=== PATIENT | male | born 1955 | race Caucasian/White ===

== ENCOUNTER → 2018-04-22 | Outpatient (CLI) | payer BC ==
[2018-04-23 15:09] LABS: Protein, Urine Quantitative 6.2 mg/dL (0.0-11.9)
== END ==
LOC: LAB 08:30 → LAB SHORT 08:30
PROVIDERS: Family Medicine
DX: E11.9 Type 2 diabetes mellitus without complications (principal)
CPT/HCPCS: 81050; 84156

== ENCOUNTER 2024-06-01 14:43 | Inpatient (IN) | payer MEDICARE, BC ==
[~2024-06-01] VITALS: Ht 175.3 cm; Wt 123.3 kg
[~2024-06-01 14:43] MED LIST: ONDA4ODT MM
[2024-06-01] MEDS ORDERED: Morphine Sulfate 4 MG/1 ML Injection IV ONE ×2 (15:05→18:25)
[2024-06-01] MEDS ORDERED: Ondansetron HCl 2 MG / ML 2ML Vial IV ONE ×2 (15:05→18:25)
[2024-06-01] MEDS ORDERED: NS 1,000 ML IV SCH (15:10)
[2024-06-01 15:14] LABS: BASOPHILS ABSOLUTE AUTO 0.05 K/mm3 (0.00-0.23); BASOPHILS PERCENT AUTO 0 % (0-2); EOSINOPHILS ABSOLUTE AUTO 0.01 K/mm3 (0.00-0.68); EOSINOPHILS PERCENT AUTO 0 % (0-6); Hematocrit 37.4 % (37.0-53.0); Hemoglobin 13.3 g/dL (13.5-17.5); IMMATURE GRAN ABSOLUTE AUTO 0.07 K/mm3 (0.00-0.10); IMMATURE GRAN PERCENT AUTO 1 % (0-1); LYMPHOCYTES ABSOLUTE AUTO 1.62 K/mm3 (0.84-5.20); LYMPHOCYTES PERCENT AUTO 12 % (21-46); MONOCYTES ABSOLUTE AUTO 0.55 K/mm3 (0.16-1.47); MONOCYTES PERCENT AUTO 4 % (4-13); Mean Corpuscular HGB 31.1 pg (26.0-34.0); Mean Corpuscular HGB Conc 35.6 g/dL (31.5-36.5); Mean Corpuscular Volume 87 fL (80-100); Mean Platelet Volume 11.2 fL (9.1-12.4); NEUTROPHILS ABSOLUTE AUTO 11.51 K/mm3 (1.96-9.15); NEUTROPHILS PERCENT AUTO 83 % (41-73); Platelet Count 319 K/mm3 (150-400); RDW Coefficient Variation 11.9 % (11.7-14.2); RDW Standard Deviation 37.7 fL (35.1-46.3); Red Blood Cell Count 4.28 M/mm3 (4.30-5.90); White Blood Cell Count 13.81 K/mm3 (4.00-11.30)
[2024-06-01 15:27] LABS: Source, Urine Voided
[2024-06-01 15:28] LABS: Albumin, Blood 3.7 g/dL (3.4-5.0); Albumin/Globulin Ratio 1.1 (0.8-1.8); Bilirubin, Total 0.4 mg/dL (0.1-1.0); Bun/Creatinine Ratio 20.1 (12.0-20.0); Calcium, Blood 9.8 mg/dL (8.5-10.1); Creatinine, Blood 0.95 mg/dL (0.60-1.20); Globulin, Blood 3.3 g/dL (2.2-4.0); Potassium, Blood 3.8 mmol/L (3.5-5.5)
[2024-06-01 15:35] LABS: Appearance, Urine Clear (Clear); Bilirubin, Urine Neg (Neg); Blood, Urine 1+ (Neg); Color, Urine Yellow (P-Yellow); Glucose Qualitative, Urine 4+ (Neg); Ketones, Urine 1+ (Neg); Leukocyte Esterase, Urine 1+ (Neg); Nitrite, Urine Neg (Neg); Protein, Urine 4+ (Neg); Specific Gravity, Urine 1.015 (1.003-1.022); Urobilinogen, Urine NORM (Normal)
[2024-06-01 15:52] LABS: Bacteria Few /hpf; Hyaline Casts 0-2 /lpf (0-2)
[2024-06-01 15:53] LABS: Amorphous Light (0-Heavy); Squamous Epithelial Cells Rare /hpf (Few)
[2024-06-01] MEDS ORDERED: Metoprolol Tartrate 1 MG/ML 5 ML VIAL IV ONE (16:10)
[2024-06-01] MEDS ORDERED: dilTIAZem HCL 100 MG in NS 100 ML IV SCH (18:20)
[2024-06-01] MEDS ORDERED: Diltiazem HCl 5 MG / ML 5ML Vial IV ONE (18:20)
[2024-06-01] MEDS ORDERED: Ondansetron HCl 2 MG / ML 2ML Vial IV PRN (19:10)
[2024-06-01] MEDS ORDERED: FLU VACC TS2024-25(6MOS UP)/PF 45 MCG/0.5 ML SYRINGE IM ONE (19:15)
[2024-06-01] MEDS ORDERED: Acetaminophen 325 MG TABLET PO PRN (19:15)
[2024-06-01] MEDS ORDERED: FentaNYL Citrate 50 MCG/ML 2 ML Injection IV PRN ×2 (19:20→21:00)
[2024-06-01 19:32] LABS: U Amphetamine Screen Not Detected; U Barbituate Screen Not Detected; U Benzodiazapine Screen Not Detected; U Buprenorphine Screen Not Detected; U Cannabinoids Screen Not Detected; U Cocaine Screen Not Detected; U Methadone Screen Not Detected; U Methamphetamine Screen Not Detected; U Opiates Screen Not Detected; U Oxycodone Screen Not Detected; U Phencyclidine Screen Not Detected
[2024-06-01 19:40] LABS: Magnesium, Blood 1.4 mg/dL (1.6-2.4); Thyroid Stimulating Hormone 0.939 uIU/mL (0.360-4.800)
[2024-06-01] MEDS ORDERED: Metoprolol Tartrate 25 MG Tab PO SCH (20:00)
[2024-06-01] MEDS ORDERED: Insulin Glargine-Yfgn 100 Unit/mL 3 ML SYR SC SCH (20:00)
[2024-06-01] MEDS ORDERED: Aspirin 325 MG Tab PO ONE (20:00)
[2024-06-01] MEDS ORDERED: Furosemide 10 MG/ML 4ML Vial IV SCH (20:13)
[2024-06-01 20:18] LABS: Anti-Xa UFH, PHA Monitoring <0.10 IU/mL; International Normalized Ratio 1.07; Prothrombin Time Results 11.4 Sec (9.7-11.5)
[2024-06-01] MEDS ORDERED: Magnesium Sulf 2 GM/Water 50ML 50 ML IV STA (20:19)
[2024-06-01] MEDS ORDERED: Dose Adjust by Pharmacy XX STA (20:26)
[2024-06-01] MEDS ORDERED: Heparin Sodium,Porcine/0.5 NS 500 ML IV SCH (20:30)
[2024-06-01] MEDS ORDERED: Heparin Sodium 5000 Units/ML 1ML MDV IV ONE (20:30)
[2024-06-01 21:08] LABS: Adenovirus Not Detected (NOT DETECT); Bordetella pertussis Not Detected (NOT DETECT); Chlamydophila pneumoniae Not Detected (NOT DETECT); Coronavirus 229E Not Detected (NOT DETECT); Coronavirus HKU1 Not Detected (NOT DETECT); Coronavirus NL63 Not Detected (NOT DETECT); Coronavirus OC43 Not Detected (NOT DETECT); Human Metapneumovirus Not Detected (NOT DETECT); Human Rhinovirus/Enterovirus Not Detected (NOT DETECT); Influenza A/2009-H1 Not Detected (NOT DETECT); Influenza A/H1 Not Detected (NOT DETECT); Influenza A/H3 Not Detected (NOT DETECT); Influenza B Not Detected (NOT DETECT); Mycoplasma pneumoniae Not Detected (NOT DETECT); Parainfluenza Virus 1 Not Detected (NOT DETECT); Parainfluenza Virus 2 Not Detected (NOT DETECT); Parainfluenza Virus 3 Not Detected (NOT DETECT); Parainfluenza Virus 4 Not Detected (NOT DETECT); Respiratory Syncytial Virus Not Detected (NOT DETECT); SARS-Cov-2 (COVID-19), BioFire Not Detected (NOT DETECT)
[2024-06-01] MEDS ORDERED: Potassium Chloride 20 MEQ/15 ML UDC PO ONE (22:00)
[2024-06-01] MEDS ORDERED: DICL75ER PO (22:09)
[2024-06-01] MEDS ORDERED: FENOFIBRIC ACI135 MG PO (22:09)
[2024-06-01] MEDS ORDERED: METO50 PO (22:10)
[2024-06-01] MEDS ORDERED: TRAM50 PO (22:12)
[2024-06-01] MEDS ORDERED: OZEMPIC1 MG/0.72 SC (22:12)
[2024-06-01] MEDS ORDERED: METF500C PO (22:13)
[2024-06-01] MEDS ORDERED: TRESIBA FL200 UNIT/2 SC (22:14)
[2024-06-01] MEDS ORDERED: ATOR10 PO (22:15)
[2024-06-01] MEDS ORDERED: OLMSRTN-AMLDPN1 EAC8 PO (22:15)
[2024-06-01] MEDS ORDERED: OMEP20ER PO (22:16)
[2024-06-01] MEDS ORDERED: ALLEGRA ALLERG180 MG PO (22:16)
[2024-06-01] MEDS ORDERED: ZYRTEC10 M2 PO (22:17)
[2024-06-01] MEDS ORDERED: LORA10ER PO (22:17)
[2024-06-01 23:07] VITALS: BP 163/91
[2024-06-01] MEDS ORDERED: Metoprolol Tartrate 1 MG/ML 5 ML VIAL IV PRN ×2 (23:19→23:55)
[2024-06-01 23:47] VITALS: BP 128/108
[2024-06-02] VITALS (20 sets, daily range): BP systolic 103–160; BP diastolic 68–145
[2024-06-02] MEDS ORDERED: Metoprolol Tartrate 1 MG/ML 5 ML VIAL IV PRN (00:10)
[2024-06-02 03:06] LABS: Hematocrit 37.8 % (37.0-53.0); Hemoglobin 13.3 g/dL (13.5-17.5); Mean Corpuscular HGB 30.9 pg (26.0-34.0); Mean Corpuscular HGB Conc 35.2 g/dL (31.5-36.5); Mean Corpuscular Volume 88 fL (80-100); Mean Platelet Volume 10.8 fL (9.1-12.4); Platelet Count 292 K/mm3 (150-400); RDW Standard Deviation 38.5 fL (35.1-46.3); White Blood Cell Count 12.62 K/mm3 (4.00-11.30)
[2024-06-02 03:25] LABS: Albumin, Blood 3.3 g/dL (3.4-5.0); Albumin/Globulin Ratio 0.9 (0.8-1.8); Bilirubin, Total 0.3 mg/dL (0.1-1.0); Bun/Creatinine Ratio 21.3 (12.0-20.0); Calcium, Blood 8.8 mg/dL (8.5-10.1); Creatinine, Blood 0.94 mg/dL (0.60-1.20); Globulin, Blood 3.5 g/dL (2.2-4.0); Total Protein, Blood 6.8 g/dL (6.4-8.2)
[2024-06-02] MEDS ORDERED: Clarify Drug Order XX ONE ×2 (04:00→23:10)
[2024-06-02] MEDS ORDERED: Omeprazole 20 MG CapCR PO SCH (06:00)
--- NOTE | 2024-06-02 06:36 | NUR ---
PT ARRIVED BY ED BY STRETCHER AND ABLE TO STAND/PIVOT TO BED. PT STEADY ON FEET. PT ABLE TO USE URINAL AT BEDSIDE INDEPENDENTLY. PT HR MAINTAINED IN THE 140s-150s IN AFIB FOR MAJORITY OF THE SHIFT. PT WAS GIVEN METOPROLOL 5MG IVPX3 WHICH DID HELP BRING HR DOWN TO LOW 140s AFTER A CALL TO DR. BORJA REGARDING PT SUSTAINED RATE IN THE 150S. OTHER VITAL SIGNS HAVE REMAINED STABLE. PT HAS BEEN ON HEPARIN INFUSION AND DILTIAZEM INFUSING AND TOLERATING WELL THE ENTIRE SHIFT. PT HR DID IMPROVE AROUND 0300 TO 90-110s IN AFIB. PT DID HAVE SINUS RHYTHM FOR A SHORT TIME BUT SWITCHED BACK TO AFIB. DILTIAZEM DRIP ATTEMPTED TO BE TITRATED DOWN TO 10MG/HR BUT HR INCREASED BACK INTO THE 120-130S. PT RESUMED 15MG/HR OF DILTIAZEM GTT WITH GOOD RESULTS OF HR 90-100s. PT HAS HAD GOOD DIURESIS OVER THE NIGHT. HR DOES INCREASE WITH EXERTION.
[2024-06-02] MEDS ORDERED: Insulin Human Lispro 100 Units/ML 3ML Syringe SC SCH (07:30)
[2024-06-02] MEDS ORDERED: Atorvastatin 40 MG Tab PO SCH (09:00)
[2024-06-02] MEDS ORDERED: Dose Adjust by Pharmacy XX STA ×2 (09:32→16:35)
[2024-06-02] MEDS ORDERED: Heparin Sodium 5000 Units/ML 1ML MDV IV ONE (09:35)
[2024-06-02] MEDS ORDERED: Metoprolol Tartrate 25 MG Tab PO ONE (13:05)
[2024-06-02] MEDS ORDERED: TraMADol HCl 50 MG Tab PO PRN ×2 (13:10→16:15)
[2024-06-02] MEDS ORDERED: Empagliflozin 10 MG TAB PO SCH (16:00)
[2024-06-02] MEDS ORDERED: Spironolactone 25 MG Tab PO SCH (16:00)
--- NOTE | 2024-06-02 17:46 | NUR ---
SHIFT SUMMARY THE PT IS A&OX4, 1P SBA, AND CALLS APPROPRAITELY. HE IS BEING DIURESED AND A MALE PURWICK WAS SET UP TO HELP WITH ELIMINATION. THE PT HAS BEEN TITRATIED ON THE DILT GTT FROM 15 DOWN TO 5MG/HR. DR. ALAN AWARE AND STATED HE WAS GOING TO MAKE SOME MEDICATION CHANGED. DR. ALAN CAME TO BEDSIDE AND EDUCATED THE PT AND FAMILY ON ECHO RESULTS. PT RECEPTIVE TO EDUCATION. THE PLAN IS FOR DIURESIS AND THEN POSSIBLE STRESS TEST OR ANGIOGRAM FRIDAY OR FRIDAY. THE PT IS ON RA AT BASELINE, BUT IS REQUIRING 2L NC TO MAINTAIN SP02 >90%. HE DENIES ANY INCREASE SOB TODAY. THE PT REMAINS ON A HEPARIN GTT AND IT IS BEING MANAGED PER PHARMACY. FAMILY UPDATED ON CARE. SEE NOTES FOR ANY UPDATES.
[2024-06-02] MEDS ORDERED: Furosemide 10 MG/ML 4ML Vial IV SCH (18:00)
[2024-06-02] MEDS ORDERED: Metoprolol Succinate 50 MG TABCR PO SCH (21:00)
[2024-06-03] VITALS (13 sets, daily range): BP systolic 108–159; BP diastolic 70–96
[2024-06-03 04:20] LABS: BASOPHILS ABSOLUTE AUTO 0.03 K/mm3 (0.00-0.23); BASOPHILS PERCENT AUTO 0 % (0-2); EOSINOPHILS ABSOLUTE AUTO 0.05 K/mm3 (0.00-0.68); EOSINOPHILS PERCENT AUTO 0 % (0-6); Hematocrit 36.8 % (37.0-53.0); Hemoglobin 12.6 g/dL (13.5-17.5); IMMATURE GRAN ABSOLUTE AUTO 0.06 K/mm3 (0.00-0.10); IMMATURE GRAN PERCENT AUTO 1 % (0-1); LYMPHOCYTES ABSOLUTE AUTO 2.61 K/mm3 (0.84-5.20); LYMPHOCYTES PERCENT AUTO 21 % (21-46); MONOCYTES ABSOLUTE AUTO 0.95 K/mm3 (0.16-1.47); MONOCYTES PERCENT AUTO 8 % (4-13); Mean Corpuscular HGB Conc 34.2 g/dL (31.5-36.5); Mean Corpuscular Volume 90 fL (80-100); Mean Platelet Volume 11.2 fL (9.1-12.4); NEUTROPHILS ABSOLUTE AUTO 8.87 K/mm3 (1.96-9.15); NEUTROPHILS PERCENT AUTO 71 % (41-73); Platelet Count 273 K/mm3 (150-400); RDW Coefficient Variation 12.2 % (11.7-14.2); RDW Standard Deviation 40.1 fL (35.1-46.3); Red Blood Cell Count 4.07 M/mm3 (4.30-5.90); White Blood Cell Count 12.57 K/mm3 (4.00-11.30)
[2024-06-03 04:35] LABS: Bun/Creatinine Ratio 24.6 (12.0-20.0); Calcium, Blood 8.7 mg/dL (8.5-10.1); Creatinine, Blood 1.14 mg/dL (0.60-1.20); Potassium, Blood 3.1 mmol/L (3.5-5.5)
[2024-06-03] MEDS ORDERED: Clarify Drug Order XX ONE (05:05)
[2024-06-03] MEDS ORDERED: Metoprolol Succinate 50 MG TABCR PO ONE (09:20)
[2024-06-03] MEDS ORDERED: Potassium Chloride 20 MEQ TabCR PO SCH ×2 (10:00→17:00)
[2024-06-03] MEDS ORDERED: Dose Adjust by Pharmacy XX STA ×2 (11:03→16:39)
[2024-06-03] MEDS ORDERED: Bisacodyl 10 MG Supp PR PRN (11:10)
[2024-06-03] MEDS ORDERED: Magnesium Hydroxide Conc 10 ML UDC PO PRN (11:10)
[2024-06-03] MEDS ORDERED: Docusate Sodium 100 MG Cap PO SCH ×2 (11:25→21:00)
[2024-06-03] MEDS ORDERED: Aspirin 81 MG Chew PO ONE (13:35)
[2024-06-03] MEDS ORDERED: Potassium Chloride 20 MEQ/15 ML UDC PO ONE (14:00)
[2024-06-03] MEDS ORDERED: Metoprolol Succinate 50 MG TABCR PO SCH (14:00)
[2024-06-03 14:36] LABS: CHOL/HDL RATIO 3.7; Cholesterol 163 mg/dL (50-200); HDL Cholesterol 44 mg/dL (>39); LDL/HDL RATIO 1.5; Low Density Lipoprotein Chol 68 mg/dL (0-110); Triglycerides 257 mg/dL (30-160); Very Low Density Lipoprot Chol 51 mg/dL (6-32)
[2024-06-03] MEDS ORDERED: Heparin Sodium 5000 Units/ML 1ML MDV IV ONE (16:40)
--- NOTE | 2024-06-03 18:31 | NUR ---
SHIFT SUMMARY: NEURO: PATIENT ALERT AND ORIENTED X4 THROUGHOUT THE SHIFT. PATIENT REPORTED PAIN ONE TIME IN HIS RIGHT ARM RELATED TO HIS TORN ROTATOR CUFF. MEDICATED PER PRNS. PATIENT STEADY ON HIS FEET. CARDIAC: PATIENT DENIED CHEST PAIN, SHORTNESS OF BREATH, AND/OR DIZZINESS AT REST OR WITH ACTIVITY. PATIENT STARTED THE SHIFT WITH THE DILTIAZEM GTT AT 10MG/HR. THIS WAS TITRATED DOWN TO 5 MG/HR AND EVENTUALLY WAS ON STANDBY FOR MOST OF THE AFTERNOON. HR WAS IN THE 80S-100S. THE SHIFT CONTINUED, PATIENT'S HR SLOWLY STARTING TO TREND UPWARDS UNTIL HE WAS IN THE 110S. DILTIAZEM GTT RESTARTED AT 5MG/HR. PATIENT TOLERATED INCREASE IN PO METOPROLOL WELL. SBP IN THE 120S-130S AND MAPS >65. PATIENT IS NPO AT MIDNIGHT FOR CARDIAC PROCEDURE TOMORROW. RESPIRATORY: PATIENT REMAINS STABLE ON 2L VIA NC. PATIENT DENIES SHORTNESS OF BREATH. SPO2 >92%. GI/: PATIENT REPORTS LACK OF BOWEL MOVEMENT FOR DAYS. BOWEL CARE STARTED THIS AM. PATIENT PASSING FLATUS. DISCUSSED LONG ACTING INSULIN AND HOSPITAL CBGS WITH DR. ROCKWELL. NEW GLARGINE ORDERS IN. PSYCHSOCIAL: PATIENT CALM AND COOPERATIVE. PATIENT REPORTS A STRONG SUPPORT SYSTEM. PATIENT VISITED BY FRIEND AND .
[2024-06-03] MEDS ORDERED: Insulin Glargine-Yfgn 100 Unit/mL 3 ML SYR SC SCH (21:00)
[2024-06-03] MEDS ORDERED: Sennosides 8.6 MG Tab PO SCH (21:00)
[2024-06-04] VITALS (11 sets, daily range): BP systolic 104–141; BP diastolic 76–89
[2024-06-04 01:18] LABS: Mean Corpuscular HGB 30.9 pg (26.0-34.0); Mean Corpuscular HGB Conc 34.2 g/dL (31.5-36.5); Mean Corpuscular Volume 90 fL (80-100); Mean Platelet Volume 10.9 fL (9.1-12.4); Platelet Count 253 K/mm3 (150-400); RDW Coefficient Variation 12.2 % (11.7-14.2); RDW Standard Deviation 40.2 fL (35.1-46.3); Red Blood Cell Count 4.21 M/mm3 (4.30-5.90); White Blood Cell Count 7.79 K/mm3 (4.00-11.30)
[2024-06-04 01:33] LABS: Bun/Creatinine Ratio 20.2 (12.0-20.0); Calcium, Blood 8.6 mg/dL (8.5-10.1); Creatinine, Blood 1.19 mg/dL (0.60-1.20); Potassium, Blood 3.7 mmol/L (3.5-5.5)
--- NOTE | 2024-06-04 05:59 | NUR ---
Shift summary- No updates to report. Heparin continued throughout the night, as well as the Diltiazem drip. Diltizem drip still at 5- heart rate staying between 90's-110's. Typicallys the 90's. Patients BP is remaining stable. Patient was NPO at midnight, has no other complaints, other than wanting to shower this morning. Offered and provided tools to complete a bed bath/wipe down given his two continuous IV infusions.
[2024-06-04] MEDS ORDERED: Dose Adjust by Pharmacy XX STA (08:35)
[2024-06-04] MEDS ORDERED: NiCARdipine HCL 1,000 MCG/5 ML SYR ONE (08:57)
[2024-06-04] MEDS ORDERED: NS 250 ML IV ONE (08:57)
[2024-06-04] MEDS ORDERED: Heparin Sodium 1000 Units/ML 10ML MDV ONE (08:57)
[2024-06-04] MEDS ORDERED: NS 1,000 ML IV ONE ×2 (08:57→09:17)
[2024-06-04] MEDS ORDERED: Nitroglycerin 2 MG/20 ML BTL ONE (08:57)
[2024-06-04] MEDS ORDERED: Aspirin 81 MG TabEC PO SCH (09:00)
[2024-06-04] MEDS ORDERED: FentaNYL Citrate 50 MCG/ML 2 ML Injection ONE (09:17)
[2024-06-04] MEDS ORDERED: Midazolam HCl 1MG / ML 2ML Vial ONE (09:17)
--- NOTE | 2024-06-04 10:28 | NUR ---
S/P POSSUM TRAPPER PT RETURNED TO ROOM S/P ANGIO. PT IS AWAKE, ALERT, AND ORIENTED. PT WITH TR BAND TO RIGHT RADIAL SITE. SITE WITHOUT OOZING, HEMATOMA, OR BRUISING NOTED. ARM BOARD IN PLACE. VITAL SIGNS STABLE. PT ON ROOM AIR. CARDIZEM INFUSING AT 10 MG/HR UPON ARRIVAL. FAMILY AT BEDSIDE. WILL CONTINUE TO MONITOR.
[2024-06-04] MEDS ORDERED: NS 500 ML IV SCH (10:35)
--- NOTE | 2024-06-04 15:55 | NUR ---
TRANSFER TO [facility] PT TAKEN VIA [facility] AT 1550 FOR TRANSFER TO [facility]. REPORT CALLED TO JOSE, ALL QUESTIONS ANSWERED. PT PHONE AND TABLET SENT WITH PT. PT SPOUSE TOOK ALL OTHER BELONGINGS HOME. PT SENT WITH HEPARIN AND CARDIZEM GTT'S INFUSING.
[2024-06-05] MEDS ORDERED: Furosemide 20 MG Tab PO SCH (09:00)
== END 2024-06-04 15:52 | disposition short-term general hospital (02) | DRG 280 ==
LOC: ER 14:43 → PCU 14:44
PROVIDERS: Emergency Medicine; Family Medicine; Internal Medicine Cardiovascular Disease; Nurse Practitioner Acute Care; ADMIT Student in an Organized Health Care Education/Training Program
PROC: 4A023N7 Measurement of Cardiac Sampling and Pressure, Left Heart, Percutaneous Approach (ICD-10-PCS; principal; 2024-06-04)
PROC: B2111ZZ Fluoroscopy of Multiple Coronary Arteries using Low Osmolar Contrast (ICD-10-PCS; 2024-06-04)
DX: I21.4 Non-ST elevation (NSTEMI) myocardial infarction (principal); I50.31 Acute diastolic (congestive) heart failure; J96.01 Acute respiratory failure with hypoxia; I48.91 Unspecified atrial fibrillation; I25.10 Atherosclerotic heart disease of native coronary artery without angina pectoris; I11.0 Hypertensive heart disease with heart failure; E78.5 Hyperlipidemia, unspecified; E11.9 Type 2 diabetes mellitus without complications; R10.84 Generalized abdominal pain; K21.9 Gastro-esophageal reflux disease without esophagitis; G47.33 Obstructive sleep apnea (adult) (pediatric); E66.01 Morbid (severe) obesity due to excess calories; D64.9 Anemia, unspecified; Z87.19 Personal history of other diseases of the digestive system; Z79.4 Long term (current) use of insulin; Z79.899 Other long term (current) drug therapy; Z87.891 Personal history of nicotine dependence; Z79.84 Long term (current) use of oral hypoglycemic drugs; Z68.39 Body mass index [BMI] 39.0-39.9, adult; Z99.89 Dependence on other enabling machines and devices
CPT/HCPCS: 0202U; 36415; 71045; 74177; 76937; 80048; 80053; 80061; 81001; 82947; 83690; 83735; 83880; 84145; 84443; 84484; 85025; 85027; 85520; 85610; 85730; 87086; 93005; 93010; 93306; 93458; 93880; 94762; 96361; 96365-59; 96366; 96368; 96375; 96376; 99152; 99153; 99285-25; A9270; C1769; C1894; G0378; J1644; J1815; J1940; J2250; J2270; J2405; J3010; J3475; J7030; J7040; J7050; Q9967